=== PATIENT | female | born 2000 | race Caucasian/White ===

== ENCOUNTER 2021-04-21 21:17 | Emergency (ER) | payer OTHER ==
[2021-04-21] MEDS ORDERED: LODINE CAP 300300 MG PO (22:53)
== END 2021-04-21 23:10 | disposition home or self-care (01) ==
LOC: ER1 21:17
DX: S09.90XA Unspecified injury of head, initial encounter (principal); F07.81 Postconcussional syndrome; W22.8XXA Striking against or struck by other objects, initial encounter
CPT/HCPCS: 99283

== ENCOUNTER → 2021-08-17 | Outpatient (CLI) | payer OTHER ==
[~2021-08-17] MED LIST: LODINE CAP 300300 MG PO
== END ==
LOC: EMI 11:00
DX: R56.9 Unspecified convulsions (principal)
CPT/HCPCS: 70553; A9577